=== PATIENT | female | born 1970 | race Caucasian/White ===

== ENCOUNTER 2016-08-15 12:33 | Day surgery (SDC) | payer BC, OTHER ==
[~2016-08-15] VITALS: Ht 170.2 cm; Wt 88.5 kg
[2016-08-15] MEDS ORDERED: CITA20TA4 PO (12:43)
[2016-08-15] MEDS ORDERED: APRITAB PO (12:43)
[2016-08-15] MEDS ORDERED: NS 1,000 ML IV ONE (13:00)
[2016-08-15 13:16] LABS: BASO % 0.4 % (0.0-1.0); EOS # 0.2 K/mm3 (0.0-0.50); EOS % 2.1 % (0.0-3.0); LARGE UNSTAINED CELL # 0.1 K/mm3 (0.0-0.4); LARGE UNSTAINED CELL % 1.3 % (0.0-4.0); LYMPH # 1.9 K/mm3 (1.5-4.5); MEAN CORPUSCULAR HEMOGLOBIN 19.3 pg (27.0-33.0); MEAN CORPUSCULAR HGB CONC 28.8 g/dl (32.0-36.5); MONO # 0.3 K/mm3 (0.0-0.8); MONO % 4.4 % (0.0-5.0); NEUTROPHILS # 4.6 K/mm3 (1.8-7.7); NEUTROPHILS % 65.8 % (36.0-66.0); PLATELET COUNT, AUTOMATED 348 k/mm3 (150-450); RED CELL DISTRIBUTION WIDTH 18.8 % (11.5-14.5)
[2016-08-15 13:28] LABS: ADD MORPHOLOGY? YES
[2016-08-15 13:30] LABS: INR 0.98
[2016-08-15 13:32] LABS: ANION GAP 8 MEQ/L (8-16); BLOOD UREA NITROGEN 11 MG/DL (7-18); CALCIUM LEVEL 8.8 MG/DL (8.5-10.1); CARBON DIOXIDE LEVEL 29 MEQ/L (21-32); CHLORIDE LEVEL 104 MEQ/L (98-107); CREATININE FOR GFR 0.81 MG/DL (0.55-1.02); GLOMERULAR FILTRATION RATE > 60.0 (>58); GLUCOSE, FASTING 119 MG/DL (70-105); POTASSIUM SERUM 3.7 MEQ/L (3.5-5.1); SODIUM LEVEL 141 MEQ/L (136-145)
[2016-08-15 13:42] LABS: ANISOCYTOSIS 2+; HYPOCHROMASIA 3+; MICROCYTOSIS 2+
[2016-08-15] MEDS ORDERED: EXCETAB42 PO (14:13)
[2016-08-15] MEDS ORDERED: VITACHTA PO (14:14)
--- NOTE | 2016-08-15 14:16 | REP ---
PELVIC ULTRASOUND: Real-time sonographic evaluation of the pelvis is performed utilizing transabdominal and endovaginal technique. The bladder measures 6.1 x 7.1 x 7.4 cm. The uterus measures 6.1 x 5.2 x 5.4 cm. Endometrial thickness is approximately 8 mm with a rounded hypoechoic area in the region of the endometrium measuring 1.4 x 1.2 x 1.6 cm suspicious for a polyp. No endometrial fluid is seen. The ovaries appear normal in size and echotexture, right ovary measuring 2.6 x 1.5 x 2.8 cm and the left ovary 2.2 x 1.2 x 1.1 cm. There is no evidence of adnexal mass or free fluid. There is no ovarian torsion with blood flow seen in each ovary with duplex Doppler evaluation, RI right ovary 3.07 and the left ovary 0.47. IMPRESSION: Endometrial polyp suspected 1.6 cm in maximum diameter. No other evidence of mass, free fluid or torsion. Signed by Salvador Kong MD 08/15/2016 04:48 P
--- NOTE | 2016-08-15 15:34 | HPE ---
DATE OF ADMISSION: 08/15/2016 A 46-year-old (G) 3, para (P) 3 female with heavy vaginal bleeding for the last seven days. She has passed numerous clots. The bleeding has finally started to slow down in the last day. She felt dizzy and lightheaded and presented to [facility] where she was found to be severely anemic with a hemoglobin of 6 grams per deciliter. She was subsequently transferred to [facility] for further management. PAST MEDICAL HISTORY: Depression. PAST SURGICAL HISTORY: 1. section times one. 2. Cholecystectomy in 2013. ALLERGIES: No known drug allergies. SOCIAL HISTORY: The patient denies cigarettes, alcohol, or drug use. She lives in [place], [place]. FAMILY HISTORY: Noncontributory. PHYSICAL EXAMINATION: Blood pressure 130/82, pulse 100, afebrile. She is in no apparent distress. However, she appears pale. HEAD AND NECK EXAMINATION: Normal. LUNGS: Clear. HEART: Regular rate and rhythm. ABDOMEN: Soft, nontender with no palpable masses. EXTREMITIES: Nontender. LABORATORY DATA: Hemoglobin 6.2 grams per deciliter. Ultrasound: Normal-sized uterus with a 1.6 cm probable endometrial polyp. No other abnormalities noted. ASSESSMENT: A 46-year-old (G) 3, para (P) 3 female with menorrhagia and severe anemia. PLAN: Admit for a blood transfusion of two units. As the bleeding has started to slow down at this point, there is no need for hormonal treatment to stop bleeding. Recommend hysteroscopy procedure to remove large endometrial polyp which could be contributing to heavy bleeding. Alf options for control of bleeding were discussed.
[2016-08-15] MEDS ORDERED: PROPOFOL 200 MG/20 ML VIAL As Ordered ONE (20:56)
[2016-08-15] MEDS ORDERED: LIDOCAINE 2% INJ 100 MG/5 ML SDV (FOR ANES.) As Ordered ONE (20:56)
[2016-08-15] MEDS ORDERED: MIDAZOLAM INJ 2 MG/2 ML VIAL (J2250) As Ordered ONE (20:56)
[2016-08-15] MEDS ORDERED: fentaNYL 100 MCG/2 ML INJECTION (J3010) As Ordered ONE (20:56)
[2016-08-15] MEDS ORDERED: ONDANSETRON 4MG/2ML VIAL (J2405) As Ordered ONE (20:56)
[2016-08-15 21:45] LABS: MEAN CORPUSCULAR HGB CONC 30.7 g/dl (32.0-36.5); RED CELL DISTRIBUTION WIDTH 21.3 % (11.5-14.5); WHITE BLOOD COUNT 8.2 K/mm3 (4.0-10.0)
[2016-08-15 21:49] LABS: CONTROL LINE HCG INT CTR LINE PRESENT
[2016-08-15] MEDS ORDERED: dexameTHASONE 4 MG/ML 1ML VIAL (J1100) As Ordered ONE (22:02)
[2016-08-15] MEDS: LR 1,000 ML IV SCH (22:45)
[2016-08-15] MEDS ORDERED: ACETAMINOPHEN 500 MG TAB PO PRN (22:45)
[2016-08-15] MEDS ORDERED: KETOROLAC 30 MG/ML VIAL (J1885) IV PRN (22:45)
[2016-08-15] MEDS ORDERED: PERCOCET 5MG/325MG TAB PO PRN (22:45)
[2016-08-15] MEDS ORDERED: LR 1,000 ML IV SCH (22:45)
[2016-08-15] MEDS ORDERED: fentaNYL 100 MCG/2 ML INJECTION (J3010) IV PRN (22:45)
[2016-08-15] MEDS ORDERED: IBUPROFEN 800 MG TAB PO PRN (22:45)
[2016-08-15] MEDS ORDERED: ONDANSETRON 4MG/2ML VIAL (J2405) IV PRN ×2 (22:45)
[2016-08-15 23:20] VITALS: BP 173/84
[2016-08-15 23:50] VITALS: BP 154/81
[2016-08-16 00:20] VITALS: BP 138/76
[2016-08-16 01:20] VITALS: BP 159/81
[2016-08-16] MEDS: LR 1,000 ML IV SCH (01:38)
[2016-08-16 02:20] VITALS: BP 141/77
[2016-08-16 03:23] VITALS: BP 98/57
[2016-08-16 04:20] VITALS: BP 129/62
[2016-08-16 07:20] LABS: MEAN CORPUSCULAR HEMOGLOBIN 22.8 pg (27.0-33.0); MEAN CORPUSCULAR HGB CONC 31.6 g/dl (32.0-36.5); MEAN CORPUSCULAR VOLUME 72.4 fl (80.0-96.0); RED CELL DISTRIBUTION WIDTH 20.9 % (11.5-14.5); WHITE BLOOD COUNT 7.8 K/mm3 (4.0-10.0)
[2016-08-16 08:00] VITALS: BP 130/72
[2016-08-16] MEDS ORDERED: CitaloPRAM (CeleXA) 20 MG TAB PO SCH (09:00)
[2016-08-16] MEDS ORDERED: IBUP800T23 PO (10:10)
[2016-08-16] MEDS ORDERED: TYLE500T78 PO (10:10)
--- NOTE | 2016-08-16 10:52 | RO ---
DATE OF PROCEDURE: 08/15/2016 PREPROCEDURE DIAGNOSIS: Menorrhagia, endometrial polyp, anemia. POSTPROCEDURE DIAGNOSIS: Menorrhagia, endometrial polyp, anemia. PROCEDURE: Hysteroscopy, dilatation and curettage (D C), polypectomy. SURGEON: Dr. Karlos Cormier PALLETISER OPERATOR: ANESTHESIA: General by laryngeal mask airway (LMA). ESTIMATED BLOOD LOSS: Minimal. FINDINGS: 1.5 x 1.5 cm firm endometrial polyp in the endometrial cavity possible intramural fibroid at the fundus, otherwise normal appearing endometrial cavity. DESCRIPTION OF PROCEDURE: The patient was taken to the operative room where general anesthesia was induced. She was prepped and draped in sterile fashion in the dorsal lithotomy position. A speculum was placed in the vagina. The anterior lip of the cervix was grasped with a tenaculum. The cervix was dilated. A diagnostic hysteroscope using normal saline as a distention media was placed through the internal os. Visualization of the endometrial cavity revealed a large endometrial polyp dilated in the lower uterine segment. Polyp forceps were used to grasp and remove the polyp in its entirety. Sharp curettage performed for a second estimate of endometrial curettings. Good hemostasis was noted. All instruments were removed. Bladder was emptied for approximately 300 mL. Sponge and instrument counts were correct.
== END 2016-08-16 10:40 | disposition home or self-care (01) ==
LOC: M ED 14:12 → M SDC 17:10 → M PED 23:11 → M SDC 08-16 10:40
PROVIDERS: ATTEND Specialist
DX: N92.0 Excessive and frequent menstruation with regular cycle (principal); N84.0 Polyp of corpus uteri; D64.9 Anemia, unspecified; D25.0 Submucous leiomyoma of uterus
CPT/HCPCS: 36415; 36430; 58558; 76830; 76856; 80048; 84703; 85025; 85027; 85610; 85730; 86850; 86900; 86901; 86920; 88305; 93976; 99285; J1100; J1885; J2250; J2405; J3010; P9016

== ENCOUNTER 2016-11-03 12:02 | Emergency (ER) | payer BC ==
[~2016-11-03] VITALS: Ht 170.2 cm; Wt 89.1 kg
[~2016-11-03 12:02] MED LIST: APRITAB PO; CITA20TA4 PO; EXCETAB49 PO; IBUP1TAB7 PO; TYLE500T78 PO; VITACHTA PO
[2016-11-03 12:03] VITALS: BP 141/89
[2016-11-03] MEDS ORDERED: SLOW45TA PO (12:09)
[2016-11-03 13:36] LABS: BASO # 0.1 K/mm3 (0.0-0.2); BASO % 0.7 % (0.0-1.0); EOS # 0.1 K/mm3 (0.0-0.50); EOS % 1.3 % (0.0-3.0); LARGE UNSTAINED CELL # 0.2 K/mm3 (0.0-0.4); LARGE UNSTAINED CELL % 1.7 % (0.0-4.0); LYMPH # 1.7 K/mm3 (1.5-4.5); LYMPH % 19.9 % (24.0-44.0); MEAN CORPUSCULAR HEMOGLOBIN 26.3 pg (27.0-33.0); MEAN CORPUSCULAR HGB CONC 33.1 g/dl (32.0-36.5); MEAN CORPUSCULAR VOLUME 79.5 fl (80.0-96.0); MONO # 0.5 K/mm3 (0.0-0.8); MONO % 5.9 % (0.0-5.0); NEUTROPHILS # 6.2 K/mm3 (1.8-7.7); NEUTROPHILS % 70.4 % (36.0-66.0); PLATELET COUNT, AUTOMATED 425 k/mm3 (150-450); RED CELL DISTRIBUTION WIDTH 16.5 % (11.5-14.5); WHITE BLOOD COUNT 8.7 K/mm3 (4.0-10.0)
[2016-11-03 13:42] LABS: ANION GAP 8 MEQ/L (8-16); BLOOD UREA NITROGEN 11 MG/DL (7-18); CALCIUM LEVEL 9.9 MG/DL (8.5-10.1); CARBON DIOXIDE LEVEL 27 MEQ/L (21-32); CHLORIDE LEVEL 102 MEQ/L (98-107); CREATININE FOR GFR 0.91 MG/DL (0.55-1.02); GLOMERULAR FILTRATION RATE > 60.0 (>58); GLUCOSE, FASTING 127 MG/DL (70-105); POTASSIUM SERUM 3.7 MEQ/L (3.5-5.1); SODIUM LEVEL 137 MEQ/L (136-145)
--- NOTE | 2016-11-03 14:54 | REP ---
PELVIC ULTRASOUND: Real-time sonographic evaluation of the pelvis performed utilizing transabdominal and endovaginal technique. Urinary bladder is collapsed. Uterus measures 7.3 x 4.7 x 4.7 cm. Endometrial thickness is 7 mm. There is no endometrial fluid collection. There is no current evidence of endometrial polyp as was suggested on the prior ultrasound of 08/15/2016. The ovaries are normal in size and echotexture, right ovary measuring 1.8 x 1.0 x 2.1 cm and left ovary 1.7 x 1.3 x 1.6 cm. There is no adnexal mass or free fluid. There is no evidence of ovarian torsion, with blood flow seen in each ovary with duplex Doppler evaluation. The resistive index bilaterally is 0.51. Incidental note is made of nabothian cysts in the region of the cervix. IMPRESSION: Normal endometrial thickness. No endometrial fluid collection. No evidence of adnexal mass, free fluid or torsion. Signed by Salvador Kong MD 11/03/2016 03:24 P
== END 2016-11-03 14:41 | disposition home or self-care (01) ==
LOC: M ED 13:08
DX: N93.8 Other specified abnormal uterine and vaginal bleeding (principal); Z88.6 Allergy status to analgesic agent; Z79.899 Other long term (current) drug therapy

== ENCOUNTER 2016-11-13 06:00 | Emergency (ER) | payer BC ==
[~2016-11-13] VITALS: Ht 170.2 cm; Wt 89.5 kg
[~2016-11-13 06:00] MED LIST changes: +SLOW45TA PO
[2016-11-13] MEDS ORDERED: MEDR10TA (06:11)
[2016-11-13] MEDS ORDERED: NS 1,000 ML IV ONE (06:30)
[2016-11-13 06:50] LABS: BASO % 0.7 % (0.0-1.0); EOS # 0.1 K/mm3 (0.0-0.50); EOS % 1.8 % (0.0-3.0); LARGE UNSTAINED CELL # 0.1 K/mm3 (0.0-0.4); LARGE UNSTAINED CELL % 1.8 % (0.0-4.0); LYMPH # 1.1 K/mm3 (1.5-4.5); LYMPH % 16.9 % (24.0-44.0); MEAN CORPUSCULAR HEMOGLOBIN 26.4 pg (27.0-33.0); MEAN CORPUSCULAR HGB CONC 33.1 g/dl (32.0-36.5); MEAN CORPUSCULAR VOLUME 79.8 fl (80.0-96.0); MONO # 0.2 K/mm3 (0.0-0.8); MONO % 3.6 % (0.0-5.0); NEUTROPHILS # 4.8 K/mm3 (1.8-7.7); NEUTROPHILS % 75.3 % (36.0-66.0); PLATELET COUNT, AUTOMATED 298 k/mm3 (150-450); RED CELL DISTRIBUTION WIDTH 16.1 % (11.5-14.5); WHITE BLOOD COUNT 6.4 K/mm3 (4.0-10.0)
[2016-11-13 06:51] LABS: ADD MORPHOLOGY? YES
[2016-11-13 06:53] LABS: INR 0.95
--- NOTE | 2016-11-13 06:53 | REP ---
Clinical: Syncope/near syncope . Comparison: None . Findings: The mediastinum and cardiac silhouette are stable and within normal limits for portable technique. The lung obrien are clear without acute consolidation, effusion, or pneumothorax. Skeletal structures are intact. Impression: No acute cardiopulmonary process appreciated. Signed by Carlitos Garcia MD 11/13/2016 06:44 A
[2016-11-13 07:01] LABS: ANION GAP 11 MEQ/L (8-16); BLOOD UREA NITROGEN 11 MG/DL (7-18); CALCIUM LEVEL 9.1 MG/DL (8.5-10.1); CARBON DIOXIDE LEVEL 25 MEQ/L (21-32); CHLORIDE LEVEL 107 MEQ/L (98-107); CREATININE FOR GFR 0.81 MG/DL (0.55-1.02); GLOMERULAR FILTRATION RATE > 60.0 (>58); GLUCOSE, FASTING 130 MG/DL (70-105); POTASSIUM SERUM 3.8 MEQ/L (3.5-5.1); SODIUM LEVEL 143 MEQ/L (136-145)
[2016-11-13 07:15] LABS: MICROCYTOSIS 1+
--- NOTE | 2016-11-13 08:28 | ECGEPIP ---
Stationary ECG Study [facility] - ED Test Date: 2016-11-13 Pat Name: GAYE HINES Department: Room: - Gender: F [employer]: TorresB: [id number] Requested By: VELIA RIVERS Order Number: [id number] Reading MD: Mia Fine Measurements Intervals [place] Rate: 86 P: 44 MI: 116 QRS: 34 QRSD: 102 T: 16 QT: 362 QTc: 435 Interpretive Statements SINUS RHYTHM WITH SHORT MI INTERVAL NO PRIOR FOR COMPARISON Electronically Signed On 11-13-2016 8:28:14 EDT by Mia Fine
[2016-11-13 09:30] VITALS: BP 136/75
== END 2016-11-13 09:34 | disposition home or self-care (01) ==
LOC: M ED 06:00
DX: N92.0 Excessive and frequent menstruation with regular cycle (principal); R19.7 Diarrhea, unspecified; R06.02 Shortness of breath; R42 Dizziness and giddiness; F33.8 Other recurrent depressive disorders; Z79.899 Other long term (current) drug therapy

== ENCOUNTER 2016-11-14 16:00 | Inpatient (IN) | payer BC ==
[~2016-11-14] VITALS: Ht 170.2 cm; Wt 90.5 kg
[~2016-11-14 16:00] MED LIST changes: -OXYC1TAB23 PO
[2016-11-14] MEDS ORDERED: ONDANSETRON 4MG/2ML VIAL (J2405) IV PRN (16:30)
[2016-11-14] MEDS ORDERED: ACETAMINOPHEN TAB 650MG DOSE (2X325MG) PO PRN (16:30)
[2016-11-14] MEDS ORDERED: NS 1,000 ML IV SCH (17:00)
[2016-11-14 17:08] LABS: BASO % 0.6 % (0.0-1.0); EOS # 0.1 K/mm3 (0.0-0.50); EOS % 1.9 % (0.0-3.0); LARGE UNSTAINED CELL # 0.1 K/mm3 (0.0-0.4); LARGE UNSTAINED CELL % 1.3 % (0.0-4.0); LYMPH # 1.8 K/mm3 (1.5-4.5); LYMPH % 24.3 % (24.0-44.0); MEAN CORPUSCULAR HEMOGLOBIN 26.5 pg (27.0-33.0); MEAN CORPUSCULAR HGB CONC 33.3 g/dl (32.0-36.5); MEAN CORPUSCULAR VOLUME 79.8 fl (80.0-96.0); MONO # 0.3 K/mm3 (0.0-0.8); MONO % 4.3 % (0.0-5.0); NEUTROPHILS # 4.7 K/mm3 (1.8-7.7); NEUTROPHILS % 67.6 % (36.0-66.0); PLATELET COUNT, AUTOMATED 391 k/mm3 (150-450)
[2016-11-14 17:10] VITALS: BP 171/89
[2016-11-14 17:10] LABS: ADD MORPHOLOGY? YES
[2016-11-14 17:19] LABS: INR 0.95
[2016-11-14 17:31] LABS: ANISOCYTOSIS 1+; HYPOCHROMASIA 1+
[2016-11-14 17:32] LABS: ALBUMIN 3.1 GM/DL (3.2-5.2); ALKALINE PHOSPHATASE 103 U/L (45-117); ALT/SGPT 87 U/L (12-78); ANION GAP 10 MEQ/L (8-16); AST/SGOT 43 U/L (15-37); BILIRUBIN,TOTAL 0.2 MG/DL (0.2-1.0); BLOOD UREA NITROGEN 11 MG/DL (7-18); CALCIUM LEVEL 8.5 MG/DL (8.5-10.1); CARBON DIOXIDE LEVEL 26 MEQ/L (21-32); CHLORIDE LEVEL 104 MEQ/L (98-107); GLOMERULAR FILTRATION RATE > 60.0 (>58); GLUCOSE, FASTING 158 MG/DL (70-105); POTASSIUM SERUM 3.5 MEQ/L (3.5-5.1); SODIUM LEVEL 140 MEQ/L (136-145); TOTAL PROTEIN 6.2 GM/DL (6.4-8.2)
--- NOTE | 2016-11-14 17:36 | HPE ---
DATE OF ADMISSION: 11/14/2016 A 46-year-old (G) 3, para (P) 3 female with heavy vaginal bleeding intermittently for the last several weeks. She passes clots. She started to feel dizzy and lightheaded. She presented to the emergency room at [facility] where she had a hemoglobin of 8.3 grams/dL. She was given fluids and bleeding seemed reasonable so she was sent home. She has continued to bleed ever since going home. She has a history of fibroid uterus and was planning to have a hysterectomy scheduled in the near future. She was admitted to the hospital in August of 2016 with heavy bleeding and hemoglobin of 6.2. She had a intracavitary uterine fibroid removed at that time which temporarily improved her bleeding. PAST MEDICAL HISTORY: 1. Depression. 2. Uterine fibroids. PAST SURGICAL HISTORY: 1. section times one. 2. Cholecystectomy in 2013. 2. Hysteroscopy removal of intracavitary uterine fibroid in August of 2016. ALLERGIES: None. SOCIAL HISTORY: The patient denies cigarettes, alcohol or drug use. She lives in [place], [place]. FAMILY HISTORY: Noncontributory. PHYSICAL EXAMINATION: VITAL SIGNS: Blood pressure 171/89, pulse 105, afebrile. GENERAL: She appears pale but in no distress. HEAD AND NECK EXAMINATION: Normal. LUNGS: Clear. HEART: Regular rate and rhythm. ABDOMEN: Nontender, soft, nondistended. EXTREMITIES: Nontender. LABORATORY DATA: Hemoglobin 7.1 grams/dL. ASSESSMENT: A 46-year-old (G) 3, para (P) 3 female with menorrhagia and severe anemia. PLAN: Admit the patient for blood transfusion due to hemoglobin of 7.1 grams/dL. Consent for blood products was obtained. Due to persistent bleeding and inability to stop the bleeding, we will proceed with hysterectomy tomorrow. The patient will be made nothing by mouth after midnight and plan for robotic-assisted hysterectomy on 11/15/2016.
[2016-11-14 20:30] VITALS: BP 166/79
[2016-11-15] VITALS (9 sets, daily range): BP systolic 108–133; BP diastolic 60–90
[2016-11-15 06:49] LABS: MEAN CORPUSCULAR HEMOGLOBIN 28.2 pg (27.0-33.0); MEAN CORPUSCULAR HGB CONC 34.2 g/dl (32.0-36.5); MEAN CORPUSCULAR VOLUME 82.4 fl (80.0-96.0); RED CELL DISTRIBUTION WIDTH 15.4 % (11.5-14.5); WHITE BLOOD COUNT 5.6 K/mm3 (4.0-10.0)
[2016-11-15] MEDS: DOCUSATE SODIUM 100 MG CAP PO SCH ×2 (09:00→20:54)
[2016-11-15] MEDS ORDERED: LIDOCAINE 2% INJ 100 MG/5 ML SDV (FOR ANES.) ONE (11:05)
[2016-11-15] MEDS ORDERED: VECURONIUM BROMIDE 10 MG VIAL ONE (11:05)
[2016-11-15] MEDS ORDERED: ONDANSETRON 4MG/2ML VIAL (J2405) ONE (11:05)
[2016-11-15] MEDS ORDERED: GLYCOPYRROLATE INJ 0.2 MG/ML 2 ML VIAL ONE (11:05)
[2016-11-15] MEDS ORDERED: ePHEDrine SULFATE 25 MG/5 ML(5MG/ML) SYRINGE ONE (11:05)
[2016-11-15] MEDS ORDERED: PROPOFOL 200 MG/20 ML VIAL ONE (11:05)
[2016-11-15] MEDS ORDERED: BUPIVACAINE HCL 0.25% 30 ML VIAL ONE (11:05)
[2016-11-15] MEDS ORDERED: METHYLENE BLUE 0.5% (5MG/ML) 10 ML AMP (PROVAYBLUE)(Q9968 PER 1MG) ONE (11:05)
[2016-11-15] MEDS ORDERED: NEOSTIGMINE 1MG/ML 5 ML SYRINGE (J2710) ONE (11:05)
[2016-11-15] MEDS ORDERED: METOCLOPRAMIDE INJ 10MG/2ML VIAL (J2765) ONE (11:05)
[2016-11-15] MEDS ORDERED: ceFAZolin 2 GM/D5W 50 ML IV BAG (J0690) ONE (11:05)
[2016-11-15] MEDS ORDERED: BUPIVACAINE HCL 0.25% 30 ML VIAL SC ONE (12:01)
[2016-11-15] MEDS ORDERED: ceFAZolin 2 GM/D5W 50 ML IV BAG (J0690) IV ONE (12:03)
[2016-11-15] MEDS ORDERED: METHYLENE BLUE 0.5% (5MG/ML) 10 ML AMP (PROVAYBLUE)(Q9968 PER 1MG) IV ONE (12:05)
[2016-11-15] MEDS: MORPHINE 2 MG/ML 1ML SYRINGE IV PRN ×7 (12:50→14:27)
[2016-11-15] MEDS ORDERED: MORPHINE 10 MG/ML 1ML VIAL ONE (12:52)
[2016-11-15] MEDS ORDERED: fentaNYL 100 MCG/2 ML INJECTION (J3010) ONE (12:52)
[2016-11-15] MEDS ORDERED: MIDAZOLAM INJ 2 MG/2 ML VIAL (J2250) ONE (12:52)
[2016-11-15] MEDS ORDERED: HYDROmorphone HCL 2 MG/ML 1ML VIAL (J1170) ONE (12:52)
[2016-11-15] MEDS ORDERED: LR 1,000 ML IV SCH ×3 (13:45)
[2016-11-15] MEDS ORDERED: fentaNYL 100 MCG/2 ML INJECTION (J3010) IV PRN (13:45)
[2016-11-15] MEDS ORDERED: MORPHINE 4 MG/ML 1ML SYRINGE IV PRN (13:45)
[2016-11-15] MEDS ORDERED: PERCOCET 5MG/325MG TAB PO PRN (13:45)
[2016-11-15] MEDS ORDERED: ONDANSETRON 4MG/2ML VIAL (J2405) IV PRN ×2 (13:45)
[2016-11-15] MEDS: PERCOCET 5MG/325MG TAB PO PRN (15:32)
[2016-11-15 18:46] LABS: MEAN CORPUSCULAR HEMOGLOBIN 28.1 pg (27.0-33.0); MEAN CORPUSCULAR HGB CONC 34.3 g/dl (32.0-36.5); MEAN CORPUSCULAR VOLUME 81.8 fl (80.0-96.0); RED CELL DISTRIBUTION WIDTH 15.6 % (11.5-14.5); WHITE BLOOD COUNT 9.4 K/mm3 (4.0-10.0)
[2016-11-16] VITALS: BP 115/64
[2016-11-16] MEDS: PERCOCET 5MG/325MG TAB PO PRN (01:36)
[2016-11-16 04:00] VITALS: BP 117/62
[2016-11-16] MEDS ORDERED: OXYC1TAB23 PO (07:03)
[2016-11-16 08:00] VITALS: BP 148/75
[2016-11-16] MEDS: DOCUSATE SODIUM 100 MG CAP PO SCH (09:39)
[2016-11-16 10:13] LABS: MEAN CORPUSCULAR HEMOGLOBIN 27.6 pg (27.0-33.0); MEAN CORPUSCULAR HGB CONC 33.4 g/dl (32.0-36.5); MEAN CORPUSCULAR VOLUME 82.8 fl (80.0-96.0); RED CELL DISTRIBUTION WIDTH 15.7 % (11.5-14.5); WHITE BLOOD COUNT 7.7 K/mm3 (4.0-10.0)
--- NOTE | 2016-11-16 21:20 | RO ---
DATE OF PROCEDURE: 11/14/2016 PREPROCEDURE DIAGNOSES: Menorrhagia, severe anemia. POSTPROCEDURE DIAGNOSES: Menorrhagia, severe anemia. OPERATIVE PROCEDURES: Robotic assisted laparoscopic hysterectomy, cystoscopy. SURGEON: Karlos Cormier MD INTERMEDIATE DESIGNER: Marah Loza NP ANESTHESIA: General endotracheal. ESTIMATED BLOOD LOSS: 100 mL. URINE OUTPUT: 250 mL IV FLUIDS: 1500 lactated Ringers. FINDINGS: Normal sized uterus, multiple fibroids present. Normal ovaries and fallopian tubes. Adhesions on bladder to the lower uterine segment. Adhesions on omentum to the midline anterior abdominal wall. DESCRIPTION OF PROCEDURE: The patient was taken to the operating room where general endotracheal anesthesia was induced. She was prepped and draped in a sterile fashion in the dorsal lithotomy position. A Mason catheter was placed and VCare uterine manipulator was placed. A periumbilical incision was made with a scalpel. A Veress needle was placed through this incision. Intraabdominal location of the Veress needle was assessed with the use a saline filled syringe. Pneumoperitoneum was created. The Veress needle was removed. A 9 mm trocar was inserted directly using [employer]. Three 8 mm suprapubic ports placed under direct visualization. The patient was placed in Trendelenburg position and the Da Luis robot was docked to the ports. Using bipolar PK dissector and monopolar EndoShears adhesions of omentum to the anterior midline were taken down sharply. Once adequate visualization obtained, attention was turned to the uterus. The uteroovarian ligaments, round ligaments and fallopian tubes complexes were coagulated and incised. Anterior and posterior leaves of the broad ligament were . A bladder flap was created. Adhesions of the bladder to the lower uterine segment were taken down sharply. The uterine vessels were coagulated and incised. A colpotomy was created at the upper vagina at the level of the VCare cup. Using monopolar Endo Neeta the incision was extended circumferentially around the upper vagina. Specimen containing uterus and cervix was removed through the vagina. The vagina was closed with #1 V-Loc suture in a running fashion. The pelvis was irrigated. Good hemostasis was noted. The patient received methylene blue dye intravenously. Bilaterally ureteral jets were identified. There was no evidence of injury to the bladder. Mason catheter was replaced. Marah Loza NP assisted with all aspects of the procedure from beginning to end. She positioned the patient and assisted with insertion of ports. She manipulated the uterus throughout the procedure and removed the specimens obtaining the uterus and cervix at the end of the procedure. She assisted with removing the ports, closing incision sites and helping the patient get off the OR table. All ports removed. The skin was closed with #4-0 Monocryl subcuticular sutures. Sponge, instrument and needle counts were correct.
--- NOTE | 2016-11-19 21:57 | DSES ---
DATE OF ADMISSION: 11/14/2016 DATE OF DISCHARGE: 11/16/2016 46-year-old 3, para 3 female with heavy vaginal bleeding intermittently for the last several weeks, she passes clots, she started to feel dizzy and lightheaded. She presented to the Emergency Room at [facility] where she had a hemoglobin of 8.3 g/dL. She was subsequently discharged home at that time. She has continued to bleed ever since and her bleeding has gotten worse. She has a known history of uterine fibroids. HOSPITAL COURSE: The patient was admitted on 11/14/2016, with a diagnosis of menorrhagia and fibroid uterus. Her hemoglobin was 7.1 g/dL on admission. She immediately received two units of blood intravenously and was kept overnight for observation. During the course of the night, her bleeding spontaneously began to slow down. Due to multiple episodes of heavy bleeding requiring hospitalization as well as transfusion, the patient was scheduled for urgent hysterectomy. On 11/15/2016, she underwent robotic assisted laparoscopic hysterectomy without complication. Her postoperative course was unremarkable. She had adequate return of bladder and bowel function. Her immediate postoperative hemoglobin was 8.5 g/dL. She was deemed stable for discharge on postoperative day #1. ADMISSION DIAGNOSIS: Menorrhagia, fibroid uterus. DISCHARGE DIAGNOSIS: Menorrhagia, fibroid uterus. PROCEDURE: Robotic assisted laparoscopic hysterectomy and cystoscopy. DISPOSITION: Patient will followup with Dr. Cormier in 2 weeks. Instructions are reviewed.
== END 2016-11-16 15:35 | disposition home or self-care (01) | DRG 513 ==
LOC: PREOBSVTOIN 16:47 → M PED 16:49
PROVIDERS: ADMIT Specialist; ATTEND Specialist
PROC: 0UT9FZZ Resection of Uterus, Via Natural or Artificial Opening With Percutaneous Endoscopic Assistance (ICD-10-PCS; principal; 2016-11-14)
PROC: 0UTC8ZZ Resection of Cervix, Via Natural or Artificial Opening Endoscopic (ICD-10-PCS; 2016-11-14)
PROC: 30233N1 Transfusion of Nonautologous Red Blood Cells into Peripheral Vein, Percutaneous Approach (ICD-10-PCS; 2016-11-14)
DX: N92.0 Excessive and frequent menstruation with regular cycle (principal); F32.9 Major depressive disorder, single episode, unspecified; D64.9 Anemia, unspecified; D25.9 Leiomyoma of uterus, unspecified; Z90.49 Acquired absence of other specified parts of digestive tract

== ENCOUNTER → 2016-11-14 | Outpatient (CLI) | payer BC ==
[~2016-11-14] MED LIST changes: +MEDR10TA; +OXYC1TAB23 PO
[2016-11-14 15:04] LABS: ADD MANUAL DIFFER YES; MEAN CORPUSCULAR HGB CONC 31.4 g/dl (32.0-36.5); MEAN CORPUSCULAR VOLUME 79.4 fl (80.0-96.0); PLATELET COUNT, AUTOMATED 382 k/mm3 (150-450); RED CELL DISTRIBUTION WIDTH 15.7 % (11.5-14.5); WHITE BLOOD COUNT 8.8 K/mm3 (4.0-10.0)
[2016-11-14 15:23] LABS: BASOPHILS 1 % (0-4); EOSINOPHILS 4 % (0-5)
[2016-11-14 15:24] LABS: ANISOCYTOSIS 2+; HYPOCHROMASIA 2+
== END ==
LOC: M LAB 14:31
PROVIDERS: ATTEND Specialist
DX: N93.8 Other specified abnormal uterine and vaginal bleeding (principal)

== ENCOUNTER → 2018-03-12 | Outpatient (CLI) | payer BC | LOC: M SLEEP 19:43 | DX: G47.33 Obstructive sleep apnea (adult) (pediatric) (principal) | CPT/HCPCS: 95810 ==

== ENCOUNTER 2020-07-29 23:46 | Day surgery (SDC) | payer BC, OTHER ==
[~2020-07-29] VITALS: Ht 170.2 cm; Wt 85.6 kg
[~2020-07-29 23:46] MED LIST changes: -CITA20TA4 PO; +CITA20TA6 PO; +OXYC1TAB23 PO
[2020-07-30] VITALS (7 sets, daily range): BP systolic 106–148; BP diastolic 56–86
[2020-07-30] MEDS ORDERED: MORPHINE 4 MG/ML 1ML VIAL/SYRINGE (J2270) IV ONE (00:45)
[2020-07-30 01:01] LABS: BASO % 0.2 % (0.0-1.0); EOS % 0.1 % (0.0-3.0); HEMATOCRIT 37.7 % (36.0-47.0); HEMOGLOBIN 12.4 g/dl (12.0-15.5); LYMPH # 1.1 10^3/uL (1.5-5.0); LYMPH % 8.5 % (24.0-44.0); MEAN CORPUSCULAR HEMOGLOBIN 27.3 pg (27.0-33.0); MEAN CORPUSCULAR HGB CONC 32.9 g/dl (32.0-36.5); MEAN CORPUSCULAR VOLUME 82.9 fl (80.0-96.0); MONO # 0.9 10^3/uL (0.0-0.8); MONO % 6.7 % (2.0-8.0); NEUTROPHILS # 10.8 10^3/uL (1.5-8.5); NEUTROPHILS % 83.9 % (36.0-66.0); PLATELET COUNT, AUTOMATED 240 10^3/uL (150-450); RED BLOOD COUNT 4.55 10^6/uL (4.00-5.40); WHITE BLOOD COUNT 12.9 10^3/uL (4.0-10.0)
[2020-07-30] MEDS: NS 1,000 ML IV SCH ×2 (01:02→07:25)
--- NOTE | 2020-07-30 01:16 | REPVR ---
PROCEDURE INFORMATION: Exam: US Nonobstetric Pelvis; Complete Exam date and time: 07/30/2020 12:41 AM Age: 50 years old Clinical indication: Pelvic pain; Patient HX: Patient states has seen at other er this morning and diagnosed with RT torsion and sent home; Additional info: Abd pain R/O ovarian torsion TECHNIQUE: Imaging protocol: Transabdominal pelvic nonobstetric ultrasound. Complete exam. Real time ultrasound with image documentation. COMPARISON: US PELVIC NON-OB COMPLETE 11/03/2016 12:47 PM FINDINGS: Uterus/cervix: Uterus is surgically absent Right adnexa: Right ovary measures 4.4 x 3.1 x 3.4 cm in size. Small complex cysts measuring up to 16 mm. Doppler flow could not be obtained involving the right ovary left ovary is not visualized Intraperitoneal space: Small volume of complex fluid within the pelvis. Urinary bladder: Normal. IMPRESSION: Complex appearing hypodense lesions within the right ovary, with no identifiable right ovarian Doppler flow. Ovarian torsion is certainly a concern given this appearance Electronically signed by: Nic Silverio On 07/30/2020 01:16:22 AM
[2020-07-30 01:29] LABS: ALBUMIN 3.9 GM/DL (3.2-5.2); ALT/SGPT 31 U/L (12-78); BILIRUBIN,DIRECT 0.2 MG/DL (0.0-0.2); BILIRUBIN,TOTAL 0.6 MG/DL (0.2-1.0); BLOOD UREA NITROGEN 13 MG/DL (7-18); CALCIUM LEVEL 8.7 MG/DL (8.5-10.1); CARBON DIOXIDE LEVEL 30 MEQ/L (21-32); CHLORIDE LEVEL 101 MEQ/L (98-107); CREATININE FOR GFR 0.69 MG/DL (0.55-1.30); GLOMERULAR FILTRATION RATE > 60.0 (>51); GLUCOSE, FASTING 152 MG/DL (70-100); LIPASE 49 U/L (73-393); POTASSIUM SERUM 3.7 MEQ/L (3.5-5.1); SODIUM LEVEL 137 MEQ/L (136-145); TOTAL PROTEIN 6.9 GM/DL (6.4-8.2)
[2020-07-30] MEDS ORDERED: PROMETHAZINE INJ 25 MG/ML VIAL (J2550) IV ONE (01:30)
[2020-07-30] MEDS ORDERED: MORPHINE 10 MG/ML 1ML VIAL (J2270) SC ONE (01:30)
[2020-07-30] MEDS ORDERED: MORPHINE 10 MG/ML 1ML VIAL (J2270) IV ONE (01:30)
[2020-07-30] MEDS ORDERED: CELE40TA PO (01:59)
[2020-07-30] MEDS ORDERED: HYDR-3713 PO (02:28)
[2020-07-30] MEDS ORDERED: B-12100010 PO (02:30)
[2020-07-30] MEDS ORDERED: D31000TA2 PO (02:30)
[2020-07-30 05:42] LABS: HEMOGLOBIN 11.6 g/dl (12.0-15.5); MEAN CORPUSCULAR HEMOGLOBIN 27.1 pg (27.0-33.0); MEAN CORPUSCULAR HGB CONC 32.2 g/dl (32.0-36.5); MEAN CORPUSCULAR VOLUME 84.1 fl (80.0-96.0); PLATELET COUNT, AUTOMATED 237 10^3/uL (150-450); RED BLOOD COUNT 4.28 10^6/uL (4.00-5.40); WHITE BLOOD COUNT 11.5 10^3/uL (4.0-10.0)
[2020-07-30] MEDS ORDERED: BUPIVACAINE HCL 0.25% 30ML VIAL As Ordered ONE (06:33)
[2020-07-30] MEDS ORDERED: ACETAMINOPHEN 1000MG 100ML IV BTL (OFIRMEV) (J0131 PER 10MG) As Ordered ONE (08:55)
[2020-07-30] MEDS ORDERED: ROCURONIUM BROMIDE 50 MG/5 ML VIAL As Ordered ONE (08:55)
[2020-07-30] MEDS ORDERED: propofoL 200 MG/20 ML VIAL As Ordered ONE ×2 (08:55→09:54)
[2020-07-30] MEDS ORDERED: SUGAMMADEX SODIUM 500 MG/5 ML VIAL (BRIDION) As Ordered ONE (08:55)
[2020-07-30] MEDS ORDERED: dexameTHASONE 4 MG/ML 1ML VIAL (J1100 PER 1MG) As Ordered ONE (08:55)
[2020-07-30] MEDS ORDERED: LIDOCAINE 2% 100MG/5ML SDV (FOR ANES.) As Ordered ONE (08:55)
[2020-07-30] MEDS ORDERED: ONDANSETRON 4MG/2ML VIAL As Ordered ONE (08:55)
[2020-07-30] MEDS ORDERED: KETOROLAC 60MG 2ML VIAL As Ordered ONE (08:55)
[2020-07-30] MEDS ORDERED: MIDAZOLAM INJ 2MG/2ML VIAL (J2250 PER 1MG) As Ordered ONE (08:55)
[2020-07-30] MEDS ORDERED: fentaNYL 100 MCG/2 ML INJECTION (J3010) As Ordered ONE (08:55)
[2020-07-30] MEDS ORDERED: HYDROmorphone HCL 2 MG/ML 1ML VIAL (J1170) As Ordered ONE (09:08)
[2020-07-30] MEDS ORDERED: OXYC1TAB23 PO ×2 (10:14→10:16)
--- NOTE | 2020-07-30 10:17 | ROOPDOC ---
[facility] Report Of Operation Report of Operation DATE OF PROCEDURE: 07/30/20 PREOPERATIVE DIAGNOSIS: Right ovarian torsion. POSTOPERATIVE DIAGNOSIS: Right ovarian torsion. PROCEDURE PERFORMED: 1. Diagnostic operative laparoscopy with bilateral salpingo-oophorectomy SURGEON: Rosio Mcnally MD DECORATIVE GREENS CUTTER: none ANESTHESIA: General endotracheal anesthesia. SPECIMENS: Bilateral fallopian tubes and ovaries ESTIMATED BLOOD LOSS: 50 mL. IV FLUIDS: 1400 mL of Lactated Ringer's solution. URINE OUTPUT: 400 mL. OPERATIVE FINDINGS: Enlarged necrotic right ovary with torsion of the right infundibulopelvic ligament. Normal-appearing left ovary PREOPERATIVE ANTIBIOTICS: None. INDICATION FOR OPERATION: This patient is a 50-year-old who presented initially with acute onset of right pelvic pain. She was leaving her job and started to have intense pelvic/abdominal pain. She proceeded to [facility] where she was diagnosed with right ovarian torsion. The pain had somewhat improved and she was discharged home with follow-up. Approximately 3 hours later, her pain return and she presented to [facility] for further evaluation. Ultrasound was performed demonstrating no flow to the right ovary. Examination showed severe abdominal pain. Patient was counseled on options for ovarian torsion. After consultation patient desired to proceed with a right salpingo-oophorectomy and if possible desired left ovary and fallopian tube removed at the time of the surgery. DESCRIPTION OF OPERATION: After informed consent was obtained and written consent was reviewed, the patient was brought to the operating room where she was placed under general endotracheal anesthesia. She was then placed in supine position, a Mason catheter was then placed and set to gravity. She was prepped and draped in the normal sterile fashion. A time out in the operating room was then performed identifying the patient, procedure be performed as well as drug allergies. Attention was then turned to the patient's abdomen where 0.25% Marcaine was infused in the umbilical region. This area was incised, an 11 mm trocar and sleeve was advanced through this incision. A laparoscope was then placed revealing intra-abdominal placement and pneumoperitoneum was then obtained with CO2 gas. Two additional port sites were placed on each side of the umbilicus. These areas were infused 0.25% Marcaine. An incision was made in each one of these areas and 5 mm trocar and sleeves was advanced through each one of these incisions under direct visualization. Next, the abdomen was then surveyed with the above noted findings. The abdomen was then suctioned. Next, using the Harmonic brielle device, the infundibulopelvic ligament bilaterally was cauterized and ligated with good hemostasis noted. Specimens placed in Endo Catch bag and was removed from the abdomen. Surgical obrien were inspected and noted be hemostatic. Instruments were then removed. The pneumoperitoneum was then released. The fascia at the umbilical port sites were closed with #0 Vicryl. The skin incisions of all three port sites were closed with #4-0 Monocryl and dressed with DERMABOND. The Mason catheter was then removed. The patient was then awakened from general anesthesia, and taken to recovery in stable condition. Counts correct. ROSIO MCNALLY MD. Jul 30, 2020 10:17
[2020-07-30] MEDS ORDERED: LR 1,000 ML IV SCH (10:40)
[2020-07-30] MEDS ORDERED: PERCOCET 5MG/325MG TAB PO PRN (10:40)
[2020-07-30] MEDS ORDERED: oxyCODONE 5MG TAB PO PRN (10:40)
[2020-07-30] MEDS ORDERED: fentaNYL 100 MCG/2 ML INJECTION (J3010) IV PRN (10:40)
[2020-07-30] MEDS ORDERED: ONDANSETRON 4MG/2ML VIAL IV PRN (10:40)
== END 2020-07-30 16:05 | disposition home or self-care (01) ==
LOC: M ED 23:46 → M SDC 07-30 02:50 → ENRESERV 07-30 03:06 → M MS5PR 07-30 03:48 → M SDC 07-30 16:05
PROVIDERS: ATTEND Obstetrics & Gynecology
DX: N83.511 Torsion of right ovary and ovarian pedicle (principal); R10.2 Pelvic and perineal pain; F32.9 Major depressive disorder, single episode, unspecified; G47.33 Obstructive sleep apnea (adult) (pediatric); Z79.899 Other long term (current) drug therapy; Z88.8 Allergy status to other drugs, medicaments and biological substances
CPT/HCPCS: 36415; 58661; 76830; 76856; 80048; 80076; 81001; 83690; 85025; 85027; 86850; 86900; 86901; 87798; 88305; 93041; 96361; 96372; 96374; 96375; 96376; 99285; J0131; J1100; J1170; J1885; J2250; J2270; J2405; J3010

== ENCOUNTER 2022-02-11 16:18 | Emergency (ER) | payer OTHER ==
[~2022-02-11] VITALS: Ht 170.2 cm; Wt 86.4 kg
[~2022-02-11 16:18] MED LIST changes: +B-12100010 PO; +CELE40TA PO; +HYDR-3713 PO; +VITA100093 PO
[2022-02-11] MEDS ORDERED: OMEP40CA5 PO (16:33)
[2022-02-11] MEDS ORDERED: NS 1,000 ML IV ONE (17:10)
[2022-02-11] MEDS ORDERED: ONDANSETRON 4MG 2ML VIAL IV ONE (17:10)
[2022-02-11 18:15] LABS: BASO % 0.4 % (0.0-1.0); EOS # 0.1 10^3/uL (0.0-0.5); EOS % 0.8 % (0.0-3.0); HEMATOCRIT 36.6 % (36.0-47.0); HEMOGLOBIN 11.9 g/dl (12.0-15.5); LYMPH # 1.2 10^3/uL (1.5-5.0); LYMPH % 12.2 % (24.0-44.0); MEAN CORPUSCULAR HEMOGLOBIN 26.9 pg (27.0-33.0); MEAN CORPUSCULAR HGB CONC 32.5 g/dl (32.0-36.5); MEAN CORPUSCULAR VOLUME 82.6 fl (80.0-96.0); MONO # 0.5 10^3/uL (0.0-0.8); MONO % 5.1 % (2.0-8.0); NEUTROPHILS # 8.1 10^3/uL (1.5-8.5); PLATELET COUNT, AUTOMATED 217 10^3/uL (150-450); RED BLOOD COUNT 4.43 10^6/uL (4.00-5.40)
[2022-02-11 20:16] VITALS: BP 136/73
== END 2022-02-11 20:49 | disposition home or self-care (01) ==
LOC: M ED 16:18 → EDBD 16:18 → M ED 20:49
DX: R55 Syncope and collapse (principal); M51.36 Other intervertebral disc degeneration, lumbar region; K21.9 Gastro-esophageal reflux disease without esophagitis; F32.9 Major depressive disorder, single episode, unspecified; Z90.49 Acquired absence of other specified parts of digestive tract; Z90.710 Acquired absence of both cervix and uterus; Z88.8 Allergy status to other drugs, medicaments and biological substances
CPT/HCPCS: 72220; 80047; 84443; 85025; 93005; 93041; 94760; 96374; 99285; J2405